=== PATIENT | male | born 1975 | race American Indian/Alaskan Native ===

== ENCOUNTER 2018-12-16 03:41 | Emergency (ER) | payer MEDICAID ==
[2018-12-16 03:51] VITALS: RESP 18; TEMP 97.9
--- NOTE | 2018-12-16 03:56 | ED PDOC ---
Arrival/HPI - General Chief Complaint: Lower Extremity Problem/Injury Time Seen by Provider: 12/16/18 03:54 Historian: Patient - History of Present Illness Narrative History of Present Illness (Text): 12/16/18 03:54 A 43 year old male presents to the emergency department complaining of feet pain for years. Patient denies any injuries/trauma, or any other complaints at this time. Past Medical History - Provider Review Nursing Documentation Reviewed: Yes - Cardiac Hx Cardiac Disorders: Yes Hx Hypertension: Yes - Psychiatric Hx Substance Use: No Family/Social History - Physician Review Nursing Documentation Reviewed: Yes Family/Social History: No Known Family HX Smoking Status: Light Smoker < 10 Cigarettes Daily Hx Alcohol Use: Yes Frequency of alcohol use: Daily Hx Substance Use: No Allergies/Home Meds Allergies/Adverse Reactions: Allergies dust Adverse Reaction (Uncoded 12/16/18 03:47) COUGH Home Medications: Home Meds Medication Instructions Recorded Confirmed No Known Home Med 12/16/18 12/16/18 Review of Systems - Physician Review All systems were reviewed & negative as marked: Yes - Review of Systems Constitutional: absent: Other (no injuries/trauma) Musculoskeletal: Other (bilateral foot pain) Physical Exam Vital Signs Reviewed: Yes Vital Signs Temp Pulse Resp BP Pulse Ox 12/16/18 03:50 97.9 F 83 18 150/84 98 Temperature: Afebrile Blood Pressure: Normal Pulse: Regular Respiratory Rate: Normal Appearance: Positive for: Unkept (disheveled) Pain Distress: None Mental Status: Positive for: Alert and Oriented X 3 - Systems Exam Lower Extremity: Present: Normal Inspection, Other (feet are dirty). No: Edema Medical Decision Making ED Course and Treatment: 12/16/18 03:56 Impression: 43 year old male with bilateral foot pain for years. Plan: -- Reassess and disposition Progress Notes: Patient states that feet have been hurting since "1999, maybe 2002". Denies any new trauma/injury. On exam, feet are warm with good pulses and no evidence of ulcers or infection. Stable for discharge. Able to ambulate. - Scribe Statement The provider has reviewed the documentation as recorded by the Chelsea Hinojosa Provider Scribe Attestation: All medical record entries made by the Scribe were at my direction and personally dictated by me. I have reviewed the chart and agree that the record accurately reflects my personal performance of the history, physical exam, medical decision making, and the department course for this patient. I have also personally directed, reviewed, and agree with the discharge instructions and disposition. Disposition/Present on Arrival - Present on Arrival Any Indicators Present on Arrival: No History of DVT/PE: No History of Uncontrolled Diabetes: No Urinary Catheter: No History of Decub. Ulcer: No History Surgical Site Infection Following: None - Disposition Have Diagnosis and Disposition been Completed?: Yes Diagnosis: Chronic pain of both feet Disposition: HOME/ ROUTINE Disposition Time: 04:05 Condition: STABLE Discharge Instructions (ExitCare): Chronic Pain (DC) Additional Instructions: LOR BAZAN, thank you for letting us take care of you today. Your provider was Mariah Brewer MD and you were treated for FOOT PAIN. The emergency medical care you received today was directed at your acute symptoms. If you were prescribed any medication, please fill it and take as directed. It may take several days for your symptoms to resolve. Return to the Emergency Department if your symptoms worsen, do not improve, or if you have any other problems. Please contact your doctor or call one of the physicians/clinics you have been referred to that are listed on the Patient Visit Information form that is included in your discharge packet. Bring any paperwork you were given at discharge with you along with any medications you are taking to your follow up visit. Our treatment cannot replace ongoing medical care by a primary care provider outside of the emergency department. Thank you for allowing the [facility] team to be part of your care today. If you had an X-Ray or CT scan: A Radiologist will review the ED reading if any change in treatment is needed we will contact you. If you had a blood, urine, or wound culture: It will take several days for the results, if any change in treatment is needed we will contact you. If you had an STI test: It will take 48 hours for the results. Please call after 1 week if you have not heard back. Forms: [employer] (Latvian)
[2018-12-16 04:29] VITALS: BP 145/84; PULSE 85; O2SAT 100
== END 2018-12-16 04:05 | disposition home or self-care (01) ==
LOC: ED 03:41
DX: M79.671 Pain in right foot (principal); M79.672 Pain in left foot; G89.29 Other chronic pain